=== PATIENT | male | born 1995 | race Caucasian/White ===

== ENCOUNTER 2020-07-25 13:48 | Outpatient (REF) | payer OTHER, SELFPAY ==
[2020-07-25 16:30] LABS: Glucose Urine UA NEG (NEG); Leukocyte Esterase Urine NEG (NEG); Nitrite Urine NEG (NEG); Urine Blood NEG (NEG); Urine Ketones NEG (NEG); Urine Protein NEG (NEG-TRACE)
[2020-07-25 16:42] LABS: Appearance Urine CLEAR; Color Urine YELLOW
[2020-07-25 16:57] LABS: RBC Urine 0 /HPF (0); WBC Urine 0-2 /HPF (0-4)
== END 2020-07-25 13:49 | disposition home or self-care (01) ==
LOC: HO.LAB 13:48
PROVIDERS: PCP Internal Medicine; Visit Provider Internal Medicine
DX: R30.0 Dysuria (principal)
CPT/HCPCS: 81001; 87086

== ENCOUNTER 2020-08-13 12:46 | Outpatient (REF) | payer OTHER, SELFPAY ==
[2020-08-13 16:20] LABS: Hematocrit 45.7 % (42-52); Mean Corpuscular Volume 87.7 fL (80-98); Red Blood Count 5.21 X10*6/uL (4.60-5.80); Red Cell Distribution Width 11.5 % (11.0-16.0); SCAN SMEAR FLAG 1
[2020-08-13 16:22] LABS: Basophils Absolute Auto 0.1 X10*3/uL (0.0-0.2); Basophils Percent Auto 0.9 % (0-2); Eosinophils Absolute Auto 0.1 X10*3/uL (0.0-0.4); Hemoglobin 15.4 g/dl (14.0-18.0); Imm Gran Abs Auto 0.02 X10*3/uL (0.00-0.03); Imm Gran Pct Auto 0.4 % (0.0-0.4); Lymphocytes Percent Auto 36.3 % (20-40); Mean Corpuscular HGB Conc 33.7 g/dl (31.0-36.0); Mean Corpuscular Hemoglobin 29.6 pg (27.0-33.0); Mean Platelet Volume 13.4 fL (9.4-12.4); Monocytes Absolute Auto 0.6 X10*3/uL (0.1-1.2); Monocytes Percent Auto 11.6 % (2-11); Neutrophils Absolute Auto 2.7 X10*3/uL (2.0-8.3); Neutrophils Percent Auto 48.8 % (45-73); Platelet Count 167 X10*3/uL (160-400); White Blood Count 5.5 X10*3/uL (4.8-10.8)
[2020-08-13 16:25] LABS: Alanine Aminotransferase 36 U/L (0-40); Albumin Level 4.5 g/dL (3.5-5.0); Alkaline Phosphatase 79 U/L (39-117); Anion Gap 11 (12-20); Aspartate Amino Transferase 23 U/L (5-37); Bilirubin Total 0.5 mg/dL (0.0-1.0); Blood Urea Nitrogen 14 mg/dL (9-16); Calcium 9.7 mg/dL (8.4-10.2); Carbon Dioxide 27 mmol/L (22-29); Chloride 106 mmol/L (96-108); Estimated Glomerular Filt Rate > 60; Glucose Random 74 mg/dL (60-115); Potassium 4.2 mmol/L (3.3-5.1); Sodium 140 mmol/L (135-145); Total Protein 7.2 g/dL (6.5-8.0)
[2020-08-13 16:26] LABS: PLT ABN DIST 1
[2020-08-13 16:47] LABS: Thyroid Stimulating Hormone 4.98 uIU/mL (0.32-4.0)
== END 2020-08-13 12:47 | disposition home or self-care (01) ==
LOC: HO.LAB 12:46
PROVIDERS: PCP Internal Medicine; Visit Provider Physician Assistant
DX: R74.01 Elevation of levels of liver transaminase levels (principal); R10.11 Right upper quadrant pain; K59.09 Other constipation; K21.9 Gastro-esophageal reflux disease without esophagitis; A04.8 Other specified bacterial intestinal infections; Z91.041 Radiographic dye allergy status; Z79.899 Other long term (current) drug therapy
CPT/HCPCS: 36415; 80053; 84443; 85025

== ENCOUNTER 2020-08-14 | Outpatient (REF) | payer OTHER, SELFPAY | END 2020-08-14 00:01 | disposition home or self-care (01) | LOC: HO.LNP | PROVIDERS: Visit Provider Physician Assistant | DX: K21.9 Gastro-esophageal reflux disease without esophagitis (principal) | CPT/HCPCS: 87045; 87046; 87329; 87338 ==

== ENCOUNTER 2020-10-27 10:53 | Outpatient (REF) | payer OTHER, SELFPAY ==
[2020-10-27 14:41] LABS: Free T4 (Free Thyroxine) 1.33 ng/dL (0.71-1.85); Thyroid Stimulating Hormone 0.98 uIU/mL (0.32-4.0)
[2020-10-29 20:42] LABS: Triiodothyronine T3 Free 3.4 pg/mL (2.3-4.2)
== END 2020-10-27 10:54 | disposition home or self-care (01) ==
LOC: HO.HMGCLDS 10:53
PROVIDERS: PCP Internal Medicine; Visit Provider Internal Medicine
DX: R63.4 Abnormal weight loss (principal); E89.0 Postprocedural hypothyroidism
CPT/HCPCS: 36415; 84439; 84443; 84481

== ENCOUNTER 2020-11-28 13:27 | Outpatient (REF) | payer OTHER, SELFPAY | END 2020-11-28 13:28 | disposition home or self-care (01) | LOC: HO.LAB 13:27 | PROVIDERS: PCP Internal Medicine; Visit Provider Internal Medicine | DX: Z20.822 Contact with and (suspected) exposure to COVID-19 (principal); J40 Bronchitis, not specified as acute or chronic | CPT/HCPCS: C9803; U0003; U0005 ==

== ENCOUNTER → 2020-12-23 13:28 | Outpatient (BNVA) | payer OTHER, SELFPAY | PROVIDERS: Visit Provider Physician Assistant ==

== ENCOUNTER 2021-08-01 13:55 | Outpatient (REF) | payer OTHER, SELFPAY ==
[2021-08-01 15:25] LABS: Appearance Urine CLEAR; Color Urine YELLOW; Glucose Urine UA NEG (NEG); Leukocyte Esterase Urine NEG (NEG); Nitrite Urine NEG (NEG); Urine Blood NEG (NEG); Urine Ketones NEG (NEG); Urine Protein NEG (NEG-TRACE)
[2021-08-01 15:26] LABS: Alanine Aminotransferase 29 U/L (0-40); Albumin Level 4.6 g/dL (3.5-5.0); Alkaline Phosphatase 74 U/L (39-117); Anion Gap 13 (12-20); Aspartate Amino Transferase 24 U/L (5-37); Blood Urea Nitrogen 9 mg/dL (9-16); Calcium 9.5 mg/dL (8.4-10.2); Carbon Dioxide 26 mmol/L (22-29); Chloride 103 mmol/L (96-108); Estimated Glomerular Filt Rate > 60; Glucose Random 82 mg/dL (60-115); Potassium 4.4 mmol/L (3.3-5.1); Sodium 138 mmol/L (135-145); Total Protein 7.6 g/dL (6.5-8.0)
== END 2021-08-01 13:56 | disposition home or self-care (01) ==
LOC: HO.HMGCLDS 13:55
PROVIDERS: PCP Internal Medicine; Visit Provider Physician Assistant Medical
DX: R30.0 Dysuria (principal); K59.00 Constipation, unspecified
CPT/HCPCS: 36415; 80053; 81003

== ENCOUNTER 2021-10-05 21:46 | Emergency (ER) | payer OTHER, SELFPAY ==
[2021-10-05 22:07] VITALS: BP 149/102; PULSE 77; RESP 18; TEMP 36.6; O2SAT 99; BMI 23.8
--- NOTE | 2021-10-05 23:30 | ED_ITS ---
HPI - Burn/Smoke Inhalation General Chief complaint: Burn/Smoke Inhalation Stated complaint: Burn Time Seen by Provider: 10/05/21 23:07 Source: patient Mode of arrival: ambulatory Limitations: no limitations History of Present Illness HPI Narrative: Comes to the emergency room complaining of a burn the anterior aspect her right wrist. Today, approximately 3 hours ago, patient was working with the heat gun, accidentally touched his scan. Patient applied cold water for 10 minutes and then came to the emergency room. Patient states it started blistering but it popped. Otherwise patient has no injuries Related Data Home Medications Medication Instructions Recorded Confirmed famotidine 20 mg tablet 20 mg PO DAILY 08/13/20 02/06/21 amitriptyline 10 mg tablet 10 mg PO BEDTIME 12/23/20 02/06/21 levothyroxine 137 mcg tablet 137 mcg PO DAILY 12/23/20 02/06/21 (Synthroid) Previous Rx's Medication Instructions Recorded amoxicillin 875 mg tablet 875 mg PO Q12H 7 days #14 tabs 02/06/21 cyclobenzaprine 10 mg tablet 10 mg PO TID PRN muscle spasm 7 08/01/21 days #14 tabs ibuprofen 800 mg tablet 800 mg PO Q8H PRN pain #30 tabs 08/01/21 bacitracin 500 unit/gram topical 1 appl topical TID 3 days #14 grams 10/05/21 ointment Allergies Allergy/AdvReac Type Severity Reaction Status Date / Time Gadolinium-Containing Allergy Unknown ANAPHYLAXIS Unverified 08/01/21 13:19 Contrast Medi [GADOLINIUM-CONTAINING CONTRAST] contrast Allergy Unknown Anaphylaxis Uncoded 08/01/21 13:19 Review of Systems Review of Systems: Constitutional : No Weight loss, No Fever, No Chills, No Night Sweats, No Fatigue, No Malaise ENT/Mouth : No Hearing loss, No Ear Pain, No Nasal Congestion, No Sinus Pain, No Hoarseness, No sore throat, No Rhinorrhea, No Swallowing Difficulty Eyes: No Eye Pain, No Swelling, No Redness, No Foreign Body, No Discharge, No Vision Changes Cardiovascular : No Chest Pain, No SOB, No Dyspnea on Exertion, No Orthopnea, No Edema, No Palpitations Respiratory : No Cough, No Sputum, No Wheezing, No Smoke Exposure, No Dyspnea Gastrointestinal : No Nausea, No Vomiting, No Diarrhea, No Constipation, No abdominal Pain, No Hematochezia, No Melena Genitourinary : no irregular bleeding, No Dysuria, No Urinary Frequency, No Hematuria, No Urinary Incontinence, No Urgency, No Flank Pain, No Urinary Flow Changes, No Hesitancy Musculoskeletal : No joint pain, No Myalgias, No Joint Swelling Skin : Small burn to the right wrist anterior aspect, 2nd degree, no blisters present, approximately 4 cm x 1 cm Neuro : No Weakness, No Numbness, No Paresthesias, No Loss of Consciousness, No Dizziness, No Headache Psych : No Anxiety/Panic, No Depression, No SI/HI/AH/VH, No Social Issues, Heme/Lymph: No Bruising, No Bleeding,No Lymphadenopathy Endocrine : No Polyuria, No Polydipsia, No Temperature Intolerance [facility] Past Medical History Surgical History H/O thyroidectomy (01/20/11) Family History Family History Mother Cancer Father Samaniego's esophagus Sister Cancer Paternal Grandfather Samaniego's esophagus Social History Social History Household Members: Family Alcohol intake: current Alcohol intake frequency: holidays/special occasions only Patient Tobacco Use Status: Never used Tobacco Advance Directives: No Current occupational status: unemployed Physical Exam Vital Signs: Vital Signs: Last Vital Signs Temp 97.9 F 10/05/21 22:07 Pulse 77 10/05/21 22:07 Resp 18 10/05/21 22:07 BP 149/102 H 10/05/21 22:07 Pulse Ox 99 10/05/21 22:07 O2 Del Method 10/05/21 22:07 BMI result Body Mass Index 23.8 Course Course Course Narrative: Patient declined Tdap, states he will check with primary care physician tomorrow if he is up-to-date on not. At this time, he does not want to be immunized. Bacitracin was applied to the wrist. Patient instructed to continue doing so at home Discharge Plan Discharge Clinical Impression: Second degree burn of arm Patient Disposition: Home, Self-Care Instructions: Second Degree Burn (ED) Additional Instructions: Please follow-up with your primary care physician tomorrow. If you have any worsening or new symptoms, please return to the emergency room or call 911 Prescriptions: New bacitracin 500 unit/gram ointment 1 appl topical TID 3 Days Qty: 14 0RF No Action amoxicillin 875 mg tablet 875 mg PO Q12H 7 Days Qty: 14 0RF ibuprofen 800 mg tablet 800 mg PO Q8H PRN (Reason: pain) Qty: 30 0RF cyclobenzaprine 10 mg tablet 10 mg PO TID PRN (Reason: muscle spasm) 7 Days Qty: 14 0RF famotidine 20 mg tablet 20 mg PO DAILY levothyroxine [Synthroid] 137 mcg tablet 137 mcg PO DAILY amitriptyline 10 mg tablet 10 mg PO BEDTIME
== END 2021-10-05 23:46 | disposition home or self-care (01) ==
PROVIDERS: Emergency Provider Emergency Medicine; PCP Internal Medicine
DX: T23.272A Burn of second degree of left wrist, initial encounter (principal); T23.271A Burn of second degree of right wrist, initial encounter; T31.0 Burns involving less than 10% of body surface; X17.XXXA Contact with hot engines, machinery and tools, initial encounter; Y93.9 Activity, unspecified; Y92.9 Unspecified place or not applicable; Y99.9 Unspecified external cause status; Z79.899 Other long term (current) drug therapy
CPT/HCPCS: 99283

== ENCOUNTER 2021-10-12 12:59 | Outpatient (REF) | payer OTHER, SELFPAY ==
--- NOTE | ~2021-10-12 | XR_ITS ---
EXAMINATION: XR ANKLE, LEFT CLINICAL INFORMATION: Left ankle pain COMPARISON: None TECHNIQUE: AP, lateral, and mortise views of the left ankle. FINDINGS: The bones and soft tissues are normal. No fracture. Alignment is anatomic. Joint spaces are maintained. No joint effusion. XR/XR ankle LT min 3V IMPRESSION: Normal left ankle.
== END 2021-10-12 13:00 | disposition home or self-care (01) ==
LOC: HO.HMGCX 12:59
PROVIDERS: Visit Provider Physician Assistant
DX: M25.572 Pain in left ankle and joints of left foot (principal)
CPT/HCPCS: 73610